=== PATIENT | male | born 1980 | race African-American/Black ===

== ENCOUNTER 2018-11-18 12:17 | Inpatient (IN) ==
[2018-11-18] MEDS ORDERED: TYLENOL PO ONE (12:46)
[2018-11-18] MEDS ORDERED: TORADOL IV ONE (13:12)
[2018-11-18] MEDS ORDERED: NS 1,000 ML IV ONE (13:12)
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
[2018-11-18 13:33] LABS: BASO# 0.02 X1000 (0.0-0.2); BASO% 0.1 % (0.0-0.8); EOS# 0.03 X1000 (0.0-0.7); EOS% 0.2 % (0.0-10.0); HEMATOCRIT 35.4 % (42.0-52.0); HEMOGLOBIN 12.5 g/dL (14.0-18.0); IMM GRAN# 0.13 X1000 (0.0-0.04); IMM GRAN% 0.7 % (0.0-0.5); LYMPH# 0.92 X1000 (1.2-3.4); LYMPH% 4.9 % (20.5-51.1); MCH 28.3 PG (27-31); MCHC 35.3 g/dL (33-37); MCV 80.1 FL (81-99); MONO# 1.99 X1000 (0.11-0.59); MONO% 10.6 % (1.7-9.3); MPV 9.6 FL (7.4-10.4); NEUT# 15.67 X1000 (1.4-6.5); NEUT% 83.5 % (42.2-75.2); PLT 255 X1000 (130-400); RBC 4.42 XMIL (4.7-6.1); WBC 18.76 X1000 (4.8-10.8)
[2018-11-18 13:39] LABS: BILIRUBIN URINE NEGATIVE (NEGATIVE); BLOOD URINE 4+ (NEGATIVE); CLARITY CLEAR (CLEAR); COLOR YELLOW; GLUCOSE URINE NEGATIVE (NEGATIVE); KETONE URINE TRACE mg/dL (NEGATIVE); LEUKOCYTES URINE 1+ (NEGATIVE); NITRITE URINE NEGATIVE (NEGATIVE); PROTEIN URINE 2+(100 mg/dL) mg/dL (NEGATIVE); UROBILINOGEN URINE 4 mg/dL
[2018-11-18 13:41] LABS: URINE BACTERIA 2+ /HFP; URINE CAST NONE SEEN /LPF; URINE CRYSTAL NONE SEEN /HPF; URINE EPITHELIAL CELLS <10 /HPF (<10); URINE RBC <10 /HPF (<10); URINE SOURCE CLEAN CATCH; URINE YEAST NONE SEEN /HPF
[2018-11-18 13:44] LABS: UR AMPHETAMINES QUAL NONE DETECTED (NONE DETECT); UR BARBITUATES QUAL NONE DETECTED (NONE DETECT); UR BENZODIAZEPIN QUAL NONE DETECTED (NONE DETECT); UR CANNABINOIDS QUAL NONE DETECTED (NONE DETECT); UR COCAINE QUAL NONE DETECTED (NONE DETECT); UR METHADONE QUAL NONE DETECTED (NONE DETECT); UR METHAMPHETAMINE QUAL NONE DETECTED (NONE DETECT); UR OPIATES QUAL PRESUMPTIVE POSITIVE (NONE DETECT); UR OXYCODONE QUAL NONE DETECTED (NONE DETECT); UR PCP QUAL NONE DETECTED (NONE DETECT); UR PROPOXYPHENE QUAL NONE DETECTED (NONE DETECT); UR TCA QUAL NONE DETECTED (NONE DETECT)
[2018-11-18 13:48] LABS: AGAP 11; ALBUMIN 3.2 g/dL (3.5-5.0); ALKALINE PHOSPHATASE 106 U/L (32-122); BUN 10 mg/dL (8-22); CALCIUM 9.2 mg/dL (8.8-10.2); CHLORIDE 99 mmol/L (98-107); COSMO 273; CREATININE 0.9 mg/dL (0.7-1.2); ESTIMATED GFR > 60; GLUCOSE 126 mg/dL (70-104); GOT 35 U/L (10-34); GPT 47 U/L (10-44); POTASSIUM 4.2 mmol/L (3.5-5.1); SODIUM 136 mmol/L (136-145); TCO2 27 mmol/L (25-35); TOTAL PROTEIN 6.8 g/dL (6.3-8.3)
[2018-11-18 13:54] LABS: INR 0.94
[2018-11-18 14:01] LABS: INFLUENZA A NEGATIVE (NEGATIVE); INFLUENZA B NEGATIVE (NEGATIVE)
--- NOTE | 2018-11-18 14:18 | Diag Imaging Result Doc PS360 ---
EXAM: CT ABD/PELVIS W/IV CONT ONLY HISTORY: LLQ pain TECHNIQUE: CT abdomen and pelvis with intravenous contrast COMPARISON: None. FINDINGS: Small nodular infiltrates in the lung bases. Small amount of air within a 1.3 cm nodule in the left lung base. Normal liver, spleen, pancreas, and adrenal glands. There are multiple nonobstructing right renal stones. Atypical areas of enhancement primarily in the left kidney. Normal aorta. No bowel obstruction. Normal appendix. Urinary bladder is mildly distended. Trace fluid in the pelvis. No abscess. IMPRESSION: 1.Left-sided pylonephritis 2.Small nodular infiltrates in the lung bases with a small cavity in the left lower lobe 3.Nonobstructing right renal stones This exam was performed using automated exposure control, adjustment of mA or kV according to patient size, and/or use of iterative reconstruction technique. Electronically signed by Gigi Hylton 11/18/2018 2:15 PM
[2018-11-18] MEDS ORDERED: ROCEPHIN 1 GM in NS 50 ML IV ONE (14:19)
--- NOTE | 2018-11-18 14:22 | Diag Imaging Result Doc PS360 ---
EXAM: CHEST-2 VIEWS HISTORY: fever TECHNIQUE: Chest two views COMPARISON: 11/17/2018 FINDINGS: The lungs are well expanded. The heart is not enlarged. The vessels are not distended. There are no infiltrates seen on the plain films. No pleural effusions. IMPRESSION: Negative exam. Electronically signed by Gigi Hylton 11/18/2018 2:19 PM
[2018-11-18] MEDS ORDERED: NS 1,000 ML IV PRN (15:16)
[2018-11-18] MEDS ORDERED: TYLENOL PO PRN (15:16)
[2018-11-18] MEDS ORDERED: VANCOMYCIN IV PER PHARMACY MISC SCH (15:30)
[2018-11-18] MEDS: ZOSYN 3.375 GM in NS 50 ML IV SCH ×2 (15:42→22:26)
[2018-11-18 15:48] LABS: IRON SATURATION 6 %; TIBC 226 ug/dL; TOTAL IRON 13 ug/dL (53-167); UNBOUND IRON 213 ug/dL (112-346)
[2018-11-18] MEDS ORDERED: VANCOMYCIN 2,200 MG in NS 500 ML IV ONE (16:00)
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
[2018-11-18 17:53] LABS: FERRITIN 325 ng/mL (30-400)
[2018-11-18] MEDS: NORCO-7.5 PO PRN ×2 (19:27→23:04)
[2018-11-19] MEDS: ZOSYN 3.375 GM in NS 50 ML IV SCH ×4 (03:27→22:15)
[2018-11-19] MEDS: NORCO-7.5 PO PRN ×3 (03:27→19:53)
[2018-11-19] MEDS ORDERED: ROBAXIN PO PRN (03:42)
[2018-11-19] MEDS ORDERED: MORPHINE IV PRN (03:42)
[2018-11-19] MEDS: VANCOMYCIN 1,600 MG in NS 250 ML IV SCH ×2 (04:06→18:07)
[2018-11-19] MEDS: PRILOSEC PO SCH (06:20)
[2018-11-19 07:32] LABS: BASO# 0.02 X1000 (0.0-0.2); BASO% 0.1 % (0.0-0.8); EOS# 0.01 X1000 (0.0-0.7); EOS% 0.1 % (0.0-10.0); HEMATOCRIT 32.1 % (42.0-52.0); HEMOGLOBIN 11.3 g/dL (14.0-18.0); IMM GRAN# 0.17 X1000 (0.0-0.04); IMM GRAN% 0.9 % (0.0-0.5); LYMPH# 1.34 X1000 (1.2-3.4); LYMPH% 6.8 % (20.5-51.1); MCH 27.7 PG (27-31); MCHC 35.2 g/dL (33-37); MCV 78.7 FL (81-99); MONO# 2.52 X1000 (0.11-0.59); MONO% 12.8 % (1.7-9.3); MPV 9.3 FL (7.4-10.4); NEUT# 15.66 X1000 (1.4-6.5); NEUT% 79.3 % (42.2-75.2); PLT 244 X1000 (130-400); RBC 4.08 XMIL (4.7-6.1); RDW 12.8 % (11.5-14.5); WBC 19.72 X1000 (4.8-10.8)
[2018-11-19 07:58] LABS: AGAP 13; ALBUMIN 2.9 g/dL (3.5-5.0); ALKALINE PHOSPHATASE 87 U/L (32-122); BUN 12 mg/dL (8-22); CALCIUM 8.6 mg/dL (8.8-10.2); CHLORIDE 98 mmol/L (98-107); COSMO 273; CREATININE 0.9 mg/dL (0.7-1.2); ESTIMATED GFR > 60; GLUCOSE 124 mg/dL (70-104); GOT 97 U/L (10-34); GPT 52 U/L (10-44); MAGNESIUM 1.7 mg/dL (1.5-2.7); POTASSIUM 3.9 mmol/L (3.5-5.1); SODIUM 136 mmol/L (136-145); TCO2 25 mmol/L (25-35); TOTAL PROTEIN 6.2 g/dL (6.3-8.3)
[2018-11-19] MEDS: TORADOL IV SCH ×3 (09:15→22:16)
--- NOTE | 2018-11-19 09:31 | PROGRESS NOTE ---
DATE: 11/19/2018 SUBJECTIVE: I was called last night by the nurse that this patient was having severe back pain. He was having fever and chills. The patient reports that he is feeling better but sometimes he has chills. OBJECTIVE: Vital Signs: Temperature 99.5 degrees, heart rate 79, respiratory rate 18, blood pressure 169/99, O2 saturation 100% on room air. General Examination: This is a 38-year-old, male, lying in bed, in no acute distress. Cardiovascular Examination: S1 and S2 heard. No murmurs, gallops, or rubs. Regular rate and rhythm. Respiratory Examination: Clear bilaterally to auscultation. No work of breathing or using accessory muscles. Abdomen: Soft. Nontender to palpation. CVA tenderness noted in the left side. Bowel sounds present. No organomegaly. Extremities: No clubbing, cyanosis, or edema. Peripheral pulses present in both legs. Neurological Examination: The patient is alert and oriented x3. Moves 4 extremities. Laboratory Data: White cell count 19.72, hemoglobin 11.3, hematocrit 32.1, platelets 244,000. Normal BMP. Mild elevation of AST at 97 and ALT 52. ASSESSMENT AND PLAN: 1. Left pyelonephritis. The patient has sepsis secondary to this condition. The patient has been started on vancomycin and Zosyn. Blood cultures from today report gram-negative cocci today. We will continue with the same antibiotic management until we have the final result of a blood culture. Also, urine culture is still pending. We will continue with intravenous fluids. 2. Community-acquired pneumonia. X-ray at admission was normal but the CT of the abdomen did show some bibasilar infiltrates. In any case, he is being treated with vancomycin and Zosyn which would cover that infection. 3. Anemia of chronic disease. Aware. We will continue to monitor CBC. 4. Tobacco abuse. Patient advised to stop smoking. 5. Disposition. We will continue to monitor this patient closely. cc: Geovanny Robledo MD
[2018-11-20] MEDS: ZOSYN 3.375 GM in NS 50 ML IV SCH ×4 (04:19→21:49)
[2018-11-20] MEDS: TORADOL IV SCH ×4 (04:19→21:49)
[2018-11-20] MEDS: VANCOMYCIN 1,600 MG in NS 250 ML IV SCH (04:56)
[2018-11-20] MEDS: PRILOSEC PO SCH (06:19)
[2018-11-20 06:39] LABS: BASO# 0.02 X1000 (0.0-0.2); BASO% 0.1 % (0.0-0.8); EOS# 0.09 X1000 (0.0-0.7); EOS% 0.5 % (0.0-10.0); IMM GRAN# 0.16 X1000 (0.0-0.04); IMM GRAN% 0.9 % (0.0-0.5); LYMPH# 2.02 X1000 (1.2-3.4); LYMPH% 11.2 % (20.5-51.1); MCH 28.1 PG (27-31); MCHC 35.5 g/dL (33-37); MCV 79.1 FL (81-99); MONO# 2.22 X1000 (0.11-0.59); MONO% 12.3 % (1.7-9.3); MPV 9.1 FL (7.4-10.4); NEUT# 13.55 X1000 (1.4-6.5); PLT 257 X1000 (130-400); RBC 3.92 XMIL (4.7-6.1); RDW 12.5 % (11.5-14.5); WBC 18.06 X1000 (4.8-10.8)
[2018-11-20 06:59] LABS: AGAP 11; BUN 15 mg/dL (8-22); CALCIUM 8.5 mg/dL (8.8-10.2); CHLORIDE 101 mmol/L (98-107); COSMO 279; CREATININE 0.9 mg/dL (0.7-1.2); ESTIMATED GFR > 60; GLUCOSE 115 mg/dL (70-104); POTASSIUM 4.3 mmol/L (3.5-5.1); SODIUM 139 mmol/L (136-145); TCO2 27 mmol/L (25-35)
--- NOTE | 2018-11-20 09:45 | PROGRESS NOTE ---
DATE: 11/20/2018 SUBJECTIVE: Patient reports that he is feeling better with less general malaise. 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 No acute issues noted as per nursing staff overnight. OBJECTIVE: Vital Signs: Temperature 97.9 degrees, heart rate 77, respiratory rate 18, blood pressure 154/89, O2 saturation 100% on room air. General Examination: This is a 38-year-old, male, lying in bed, in no acute distress. Cardiovascular Examination: S1 and S2 heard. No murmurs, gallops, or rubs. Regular rate and rhythm. Respiratory Examination: Clear bilaterally to auscultation. No work of breathing or using accessory muscles. Abdomen: Soft, nontender to palpation. CVA tenderness noted in the left side. Bowel sounds present. No organomegaly. Extremities: No clubbing, cyanosis, or edema. Peripheral pulses present in both legs. Neurological Examination: The patient is alert and oriented x3. Moves 4 extremities. Laboratory Data: White cell count 18.06, hemoglobin 11.0, hematocrit 31.0, platelets 257,000. Normal BMP. ASSESSMENT AND PLAN: 1. Sepsis secondary to left pyelonephritis. The patient is on vancomycin and Zosyn, day #3 of treatment. Blood cultures both show gram-positive cocci. Urine culture is negative. At this point, we are going to continue with both antibiotics until we know the final result of blood cultures. For the last 24 hours, the patient has been afebrile. If white cell count is elevated, we will definitely switch to different antibiotics; in this case, Zyvox. 2. Community-acquired pneumonia. The CT of the abdomen described infiltrates related with pneumonia. Considering that the white cell count is elevated, to have a better visualization of the lung anatomy, I will prefer to do a CT of the chest. We will go from there. 3. Anemia of chronic disease. Aware. We will continue to monitor CBC. 4. Tobacco abuse. Patient advised to stop smoking. 5. Disposition. We will continue to monitor this patient closely. cc: Geovanny Robledo MD [facility]
[2018-11-20] MEDS: NORCO-7.5 PO PRN (17:01)
[2018-11-20] MEDS: VANCOMYCIN 1,750 MG in NS 250 ML IV SCH (17:39)
[2018-11-21] MEDS: ZOSYN 3.375 GM in NS 50 ML IV SCH (04:25)
[2018-11-21] MEDS: TORADOL IV SCH ×4 (04:25→23:11)
[2018-11-21] MEDS: VANCOMYCIN 1,750 MG in NS 250 ML IV SCH (04:58)
[2018-11-21] MEDS: PRILOSEC PO SCH ×2 (05:33→06:35)
[2018-11-21 07:13] LABS: BASO# 0.03 X1000 (0.0-0.2); BASO% 0.2 % (0.0-0.8); EOS# 0.21 X1000 (0.0-0.7); EOS% 1.6 % (0.0-10.0); HEMATOCRIT 30.7 % (42.0-52.0); HEMOGLOBIN 10.5 g/dL (14.0-18.0); IMM GRAN# 0.13 X1000 (0.0-0.04); LYMPH# 2.08 X1000 (1.2-3.4); LYMPH% 15.7 % (20.5-51.1); MCH 27.2 PG (27-31); MCHC 34.2 g/dL (33-37); MCV 79.5 FL (81-99); MONO# 1.58 X1000 (0.11-0.59); MONO% 11.9 % (1.7-9.3); MPV 9.1 FL (7.4-10.4); NEUT# 9.24 X1000 (1.4-6.5); NEUT% 69.6 % (42.2-75.2); PLT 280 X1000 (130-400); RBC 3.86 XMIL (4.7-6.1); RDW 12.8 % (11.5-14.5); WBC 13.27 X1000 (4.8-10.8)
[2018-11-21 07:22] LABS: AGAP 10; BUN 13 mg/dL (8-22); CALCIUM 8.2 mg/dL (8.8-10.2); CHLORIDE 103 mmol/L (98-107); COSMO 276; CREATININE 0.9 mg/dL (0.7-1.2); ESTIMATED GFR > 60; GLUCOSE 109 mg/dL (70-104); POTASSIUM 4.5 mmol/L (3.5-5.1); SODIUM 138 mmol/L (136-145); TCO2 25 mmol/L (25-35)
[2018-11-21] MEDS ORDERED: ROCEPHIN 2 GM in NS 50 ML IV SCH (08:30)
--- NOTE | 2018-11-21 09:34 | Diag Imaging Result Doc PS360 ---
CT THORAX W/CONTRAST - 11/21/2018 INDICATION: pneumonia suspected COMPARISON: CT abdomen pelvis 11/18/2018 FINDINGS: There are a few scattered pulmonary nodules bilaterally, at least three in the left lower lobe, one in the right upper lobe, and one in the right lower lobe. The left lower lobe superior segment nodule demonstrates some slight internal cavitation. The right lower lobe nodule demonstrates surrounding infiltrate. No significant adenopathy. Heart size is normal. The left kidney continues to enhance heterogeneously. There is a stone in the right kidney. Bony structures are intact. IMPRESSION: 1. Bilateral multinodular airspace disease. There is also infiltrate and cavitation involved. These are nonspecific but highly compatible with septic emboli. 2. Abnormal left kidney compatible with pyelonephritis. This exam was performed using automated exposure control, adjustment of mA or kV according to patient size, and/or use of iterative reconstruction technique Electronically signed by Uday Tan 11/21/2018 9:32 AM
--- NOTE | 2018-11-21 12:29 | PROGRESS NOTE ---
DATE: 11/21/2018 SUBJECTIVE: The patient reports feeling not feverish. No general malaise. As per nursing staff, patient admit using IV drugs, in this case, heroin actively. He has used IV heroin just before coming to the hospital and he has been doing that for a while. He reports using a new needle every time he uses drugs. OBJECTIVE: Vital Signs: Temperature 97.4 degrees, heart rate 77, respiratory rate 18, blood pressure 142/96, O2 saturation 100% on room air. General: This is a 38-year-old male, lying in bed, in no acute distress. Cardiovascular: S1, S2 heard. No murmurs, gallops, or rubs. Regular rate and rhythm. Respiratory: Clear bilaterally to auscultation. No work of breathing or using accessory muscles. Abdomen: Soft, nontender to palpation. Bowel sounds present. No organomegaly. No CVA tenderness noted. Extremities: No clubbing, cyanosis, or edema. The are markings noted on the right antecubital fossa. Neurological: Patient is alert and oriented x3. Moves 4 extremities. LABORATORY DATA: White cell count is 13.27, hemoglobin 10.5, hematocrit 30.7, platelets 280,000. Normal BMP. ASSESSMENT AND PLAN: 1. Sepsis secondary to left pyelonephritis methicillin-susceptible Staphylococcus aureus bacteremia. Patient was admitted to the hospital for fever and sepsis. In the imaging, we found out that this patient has signs of left pyelonephritis. Also, the CT scan of the abdomen at the beginning showed some pneumonia. Because of persistent leukocytosis despite antibiotics, we have ordered a CT of the chest which basically showed bilateral multinodular air space disease and also infiltrate and cavitation involved which are highly compatible with septic emboli. Patient today disclose to us that he is a current intravenous drug abuser and his drug of choice is heroin. In that regard, considering that we have isolated MSSA, what we are going to do is to order an echocardiogram because we are suspecting endocarditis. We are going to consult Infectious Disease. We will continue to monitor this patient closely. 2. Anemia of chronic disease. Aware. We will continue to monitor CBC. 3. Tobacco use. Patient advised to stop smoking. 4. Disposition. Patient is going to [facility] to be evaluated by Infectious Disease. Also, we are ordering echocardiogram to rule out any endocarditis. cc: Geovanny Robledo MD MTDD
[2018-11-22] MEDS: TORADOL IV SCH (05:56)
[2018-11-22] MEDS: NORCO-7.5 PO PRN ×3 (06:04→19:57)
[2018-11-22 07:47] LABS: BASO# 0.03 X1000 (0.0-0.2); BASO% 0.2 % (0.0-0.8); EOS% 1.4 % (0.0-10.0); HEMATOCRIT 34.3 % (42.0-52.0); HEMOGLOBIN 11.7 g/dL (14.0-18.0); IMM GRAN# 0.14 X1000 (0.0-0.04); LYMPH# 2.19 X1000 (1.2-3.4); LYMPH% 15.6 % (20.5-51.1); MCH 27.3 PG (27-31); MCHC 34.1 g/dL (33-37); MCV 80.1 FL (81-99); MONO# 0.95 X1000 (0.11-0.59); MONO% 6.8 % (1.7-9.3); MPV 9.1 FL (7.4-10.4); NEUT# 10.54 X1000 (1.4-6.5); PLT 392 X1000 (130-400); RBC 4.28 XMIL (4.7-6.1); RDW 12.7 % (11.5-14.5); WBC 14.05 X1000 (4.8-10.8)
[2018-11-22 08:19] LABS: AGAP 11; BUN 11 mg/dL (8-22); CHLORIDE 98 mmol/L (98-107); COSMO 272; ESTIMATED GFR > 60; GLUCOSE 185 mg/dL (70-104); POTASSIUM 4.1 mmol/L (3.5-5.1); SODIUM 134 mmol/L (136-145); TCO2 25 mmol/L (25-35)
--- NOTE | 2018-11-22 08:49 | ECHO REPORT ---
ORDER DATE: 11/21/2018 INTERPRETING PHYSICIAN: Bk Xavier MD. REQUESTING PHYSICIAN: Geovanny Robledo MD. CLINICAL INDICATIONS: 38-year-old male with Staphylococcus bacteremia. I suspect the reason for this study is to look for endocardial vegetation. M-MODE MEASUREMENTS: Left ventricle end diastole: 5.5 cm. Left ventricle end systole: 3.3 cm. Posterior wall: 1.0 cm. Interventricular septum: 1.0 cm. Left atrium: 3.3 cm. Aortic root: 3.2 cm. SUMMARY OF 2-DIMENSIONAL IMAGIN. The left ventricular function appears to be normal, ejection fraction of 60% to 65%. 2. The aortic valve has 3 cusps, it looks normal. There is no vegetation. 3. The pulmonic valve looks normal. It was well visualized. Color flow mapping unremarkable. 4. The mitral valve looks normal. Color flow mapping unremarkable. 5. The pulse wave Doppler of mitral inflow shows normal E/A ratio. 6. Tissue Doppler of septal and lateral mitral annulus averages 12 cm. 7. There is no diastolic dysfunction. 8. The tricuspid valve shows mild degree of regurgitation. 9. Pulmonary pressure estimated at 30 mmHg. 10.There is no evidence of mass and no thrombus. 11.Very mild degree of mitral regurgitation appeared to be present by color flow mapping. 12.The atria appear to be moderately enlarged. Clinical correlation is recommended. cc: MD Geovanny Rock MD
[2018-11-22] MEDS: PRILOSEC PO SCH (09:38)
[2018-11-22] MEDS: ROCEPHIN 2 GM in NS 50 ML IV SCH (10:52)
[2018-11-22 12:27] LABS: HEPATITIS PROFILE ACUTE SEE COMMENTS
--- NOTE | 2018-11-22 12:39 | PROGRESS NOTE ---
DATE: 11/22/2018 SUBJECTIVE: The patient is resting comfortably in bed. OBJECTIVE: Vital signs: Temperature 98.7 degrees, pulse 78, respiratory rate 16, blood pressure 146/96, oxygen saturation 100%. HEENT: Atraumatic, normocephalic. Cardiovascular: S1, S2. Respiratory: Has evidence of good air entry bilaterally. Abdomen: Soft, nontender. No masses felt. Extremities: No evidence of edema. Central nervous system: No obvious focal deficit noted. LABORATORY DATA: WBC is 14.05, hematocrit is 34.3, with a platelet count of 392,000. Sodium is 134, potassium 4.1, pulse 98, bicarb 25, BUN is 11, creatinine 1.0. ASSESSMENT AND PLAN: 1. Sepsis secondary to left pyelonephritis. Blood cultures positive for methicillin resistant Staphylococcus aureus. Continue current antibiotic regimen. Infectious Disease consulted. 2. Anemia. Follow up on hemoglobin and hematocrit. Transfuse packed red blood cells as needed. 3. Tobacco use history. The patient advised to quit smoking. cc: Petar Pacheco MD
[2018-11-22] MEDS: DILAUDID IV PRN ×2 (16:06→22:43)
[2018-11-23] MEDS ORDERED: DILAUDID IV ONE (01:13)
[2018-11-23] MEDS: DILAUDID IV PRN ×3 (05:16→18:00)
[2018-11-23] MEDS: PRILOSEC PO SCH ×2 (05:16→06:02)
[2018-11-23 07:43] LABS: BASO# 0.06 X1000 (0.0-0.2); BASO% 0.3 % (0.0-0.8); EOS# 0.13 X1000 (0.0-0.7); EOS% 0.7 % (0.0-10.0); HEMATOCRIT 33.9 % (42.0-52.0); HEMOGLOBIN 11.9 g/dL (14.0-18.0); IMM GRAN# 0.22 X1000 (0.0-0.04); IMM GRAN% 1.2 % (0.0-0.5); LYMPH# 2.31 X1000 (1.2-3.4); LYMPH% 12.9 % (20.5-51.1); MCH 27.9 PG (27-31); MCHC 35.1 g/dL (33-37); MCV 79.6 FL (81-99); MONO# 1.41 X1000 (0.11-0.59); MONO% 7.9 % (1.7-9.3); MPV 8.9 FL (7.4-10.4); NEUT# 13.73 X1000 (1.4-6.5); PLT 441 X1000 (130-400); RBC 4.26 XMIL (4.7-6.1); RDW 12.8 % (11.5-14.5); WBC 17.86 X1000 (4.8-10.8)
[2018-11-23] MEDS: ROCEPHIN 2 GM in NS 50 ML IV SCH (10:30)
[2018-11-23] MEDS: NORCO-7.5 PO PRN ×2 (13:11→20:13)
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
[2018-11-23] MEDS: NAFCIL 2 GM in NS 100 ML IV SCH ×3 (16:36→22:06)
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
[2018-11-24] MEDS: NAFCIL 2 GM in NS 100 ML IV SCH ×6 (01:56→19:38)
[2018-11-24] MEDS: DILAUDID IV PRN ×4 (01:56→23:00)
[2018-11-24] MEDS: NORCO-7.5 PO PRN ×2 (06:09→19:38)
[2018-11-24] MEDS: PRILOSEC PO SCH (06:09)
[2018-11-24 07:12] LABS: BASO# 0.04 X1000 (0.0-0.2); BASO% 0.3 % (0.0-0.8); EOS# 0.17 X1000 (0.0-0.7); EOS% 1.1 % (0.0-10.0); HEMOGLOBIN 12.1 g/dL (14.0-18.0); IMM GRAN# 0.27 X1000 (0.0-0.04); IMM GRAN% 1.8 % (0.0-0.5); LYMPH# 2.11 X1000 (1.2-3.4); LYMPH% 14.1 % (20.5-51.1); MCH 27.6 PG (27-31); MCHC 34.6 g/dL (33-37); MCV 79.7 FL (81-99); MONO# 1.36 X1000 (0.11-0.59); MONO% 9.1 % (1.7-9.3); MPV 8.7 FL (7.4-10.4); NEUT# 10.98 X1000 (1.4-6.5); NEUT% 73.6 % (42.2-75.2); PLT 446 X1000 (130-400); RBC 4.39 XMIL (4.7-6.1); WBC 14.93 X1000 (4.8-10.8)
[2018-11-24 07:31] LABS: AGAP 9; ALB/GLOB RATIO 0.8; ALKALINE PHOSPHATASE 93 U/L (32-122); BUN 10 mg/dL (8-22); CALCIUM 9.2 mg/dL (8.8-10.2); CHLORIDE 101 mmol/L (98-107); COSMO 272; CREATININE 0.9 mg/dL (0.7-1.2); ESTIMATED GFR > 60; GLUCOSE 124 mg/dL (70-104); GOT 23 U/L (10-34); GPT 55 U/L (10-44); POTASSIUM 4.5 mmol/L (3.5-5.1); SODIUM 136 mmol/L (136-145); TCO2 26 mmol/L (25-35); TOTAL BILIRUBIN 0.44 mg/dL (0.20-1.00); TOTAL PROTEIN 6.6 g/dL (6.3-8.3)
--- NOTE | 2018-11-24 08:40 | EKG Report ---
Test Performed on : 11/24/2018 08:01:11 AM Test Reason : pyelonephritis, staph bacteremia Blood Pressure : / mmHG Vent. Rate : 084 BPM Atrial Rate : 084 BPM P-R Int : 134 ms QRS Dur : 082 ms QT Int : 360 ms P-R-T Axes : 028 029 030 degrees QTc Int : 425 ms Normal sinus rhythm. Cannot rule out Anterior infarct , age undetermined Abnormal ECG No previous ECGs available Confirmed by Chong BUSH, Bipin Crabtree ([id number]) on 11/25/2018 12:48:52 PM
--- NOTE | 2018-11-24 15:41 | PROGRESS NOTE ---
DATE: 11/24/2018 SUBJECTIVE: Patient is awake, not in any obvious distress. OBJECTIVE: Vital signs: Temperature is 97.9 degrees, pulse 101, respiratory rate is 20, blood pressure 142/93, oxygen saturation is 98%. HEENT: Atraumatic, normocephalic. Cardiovascular system: S1, S2. Respiratory system: Has evidence of good air entry bilaterally. Abdomen: Soft, nontender. No masses felt. Central nervous system: No obvious focal deficits noted. LABS: WBC is 14.93, hematocrit 35, with a platelet count of 446,000. Sodium is 136, potassium is 4.5, chloride is 103, bicarb 26, BUN 10, creatinine 0.9. ASSESSMENT AND PLAN: 1. Left pyelonephritis/methicillin-sensitive Staphylococcus aureus bacteremia. Antibiotic management per Infectious Disease team. 2. Anemia. Follow up on hemoglobin and hematocrit. Transfuse PRBCs as needed. 3. Tobacco use history. Patient advised to quit cigarette smoking. cc: Petar Pacheco MD
[2018-11-25] MEDS: NAFCIL 2 GM in NS 100 ML IV SCH ×4 (00:33→11:49)
[2018-11-25] MEDS: DILAUDID IV PRN ×4 (04:53→23:15)
[2018-11-25] MEDS: PRILOSEC PO SCH (06:25)
[2018-11-25] MEDS ORDERED: ANESTHESIA PB SET 88 IN 5742 ONE (12:54)
[2018-11-25] MEDS ORDERED: NS 1,000 ML ONE (12:54)
[2018-11-25] MEDS ORDERED: CLAVE TWINSITE 32 IN 11959 ONE (12:54)
[2018-11-25] MEDS ORDERED: DIPRIVAN 1% ONE (12:57)
--- NOTE | 2018-11-25 13:08 | PROGRESS NOTE ---
DATE: 11/25/2018 SUBJECTIVE: The patient is resting in bed. Not in any obvious distress. OBJECTIVE: Vital signs: Temperature 98.4 degrees, pulse 88, respiratory is 19, blood pressure 155/89, oxygen saturation is 99%. HEENT: Atraumatic, normocephalic. Cardiovascular: S1, S2. Respiratory: Has evidence of good entry bilaterally. Abdomen: Soft, nontender. No masses felt. Extremities: No evidence of edema. Central nervous system: No obvious focal deficits noted. LABS: None. ASSESSMENT AND PLAN: 1. Left pyelonephritis/pneumonia/methicillin sensitive Staph aureus bacteremia. Antibiotic management per the Infectious Disease team. The patient is scheduled to have a transesophageal echo to rule out any evidence of endocarditis and that is currently pending at this time. 2. Anemia follow up on hemoglobin and hematocrit. Transfuse packed red blood cells as needed. 3. Tobacco use history. The patient advised to quit cigarette smoking. cc: Petar Pacheco MD
--- NOTE | 2018-11-25 15:48 | INFECTIOUS DISEASE PROGRESS NO ---
DATE: 11/25/2018 PRESENT ILLNESS: The patient has an oxacillin sensitive Staph aureus bacteremia, pneumonia, and pyelonephritis. He the patient told me today that his transesophageal echocardiogram did not show endocarditis. The patient complained of a very painful left shoulder. He was he was seen yesterday by Dr. Peralta grew tried to aspirate the shoulder and could not obtain any purulent material. MEDICATIONS: Currently, the patient is on nafcillin intravenously. PHYSICAL EXAMINATION: Vital Signs: Temperature is 98.4 degrees, pulse 88, respirations 19, blood pressure 155/89. General: This is a fairly healthy-appearing young male. He is in no acute distress. Head, eyes, ears, nose, and throat: He can hear my spoken words and see near objects. He does not have any white coating to his tongue. Neck: No pain with movement of the neck. Lungs: Clear to auscultation. Cardiovascular: Regular. I do not hear a murmur. Abdomen: Soft and not tender. Extremities: Left shoulder: The patient is able to move a little bit more without as much pain. Neurologic: Patient is alert. He can move his extremities. There is no tremor. LAB AND X-RAY: The patient's repeat blood cultures from November 21 are sterile. CBC shows a white count of 14,930, hemoglobin 12.1, platelet count 446,000. Creatinine is 0.9. GFR is greater than 60. ASSESSMENT AND PLAN: The patient has Staphylococcus aureus bacteremia, pneumonia, and pyelonephritis as seen on CT scan. He does not appear to have endocarditis or a septic shoulder. My plan would be to have a PICC placed in the patient and send him home on either IV nafcillin or Ancef for a period of 2 weeks. I directly asked the patient if he does IV drugs and he told me that he did in the past but he has not done any of that in the last 2 years and he promised me he would not restart doing it. I am going to order a PICC to be placed and also put in an order for Social Service to set up home IV antibiotics. COMORBIDITIES: He had these multiple Staphylococcus aureus infections including bacteremia, pneumonia and pyelonephritis, but other than that, he is seems to be in good health. He does have hepatitis C as seen on the hepatitis panel. The blood sample has been sent off for hepatitis C by PCR. cc: Wellington Nicholas MD
[2018-11-25] MEDS: KEFZOL 2 GM/D5W 2 GM/50 ML IVPB IV SCH (16:33)
[2018-11-25 18:45] LABS: INR 0.96; PROTIME 13.6 Seconds (11.0-16.0)
[2018-11-25] MEDS: NORCO-7.5 PO PRN (20:35)
[2018-11-25] MEDS: ZOFRAN IV PRN (23:14)
[2018-11-25] MEDS ORDERED: TUMS EXTRA STRENGTH PO PRN (23:40)
[2018-11-26] MEDS: KEFZOL 2 GM/D5W 2 GM/50 ML IVPB IV SCH ×3 (00:21→15:20)
[2018-11-26] MEDS: PRILOSEC PO SCH (06:51)
[2018-11-26] MEDS: DILAUDID IV PRN ×2 (07:01→15:20)
[2018-11-26] MEDS: ZOFRAN IV PRN (07:02)
--- NOTE | 2018-11-26 08:36 | Transesophageal Echocardiogram ---
DATE: 11/25/2018 PROCEDURE IN DETAIL: The patient was brought to the catheterization laboratory in a fasting state. Informed consent was obtained. Prepped in usual fashion. He was anesthetized with Hurricaine spray, as well as propofol. After appropriate sedation, AMY probe was passed without difficulty. Images were obtained in multiple planes. Probe was removed. He tolerated the procedure well with no complications. FINDINGS: 1. The right atrium appears normal in size. There is no evidence of shunting across the interatrial septum with injection of agitated saline contrast as well as color Doppler evaluation. 2. Trace tricuspid regurgitation. 3. Normal RV size and systolic function. 4. No significant pulmonic insufficiency. 5. The left atrium appears normal in size with no evidence of clot in the left atrium or left atrial appendage. 6. No mitral valve prolapse. Trace mitral regurgitation. 7. Normal LV size with normal LV systolic function. Estimated EF is greater than 55%. 8. Aortic valve opens well. It is trileaflet. No evidence of stenosis or insufficiency. 9. Aorta appears normal in visualized segments. 10. No pericardial effusion seen. 11. There is no evidence of adherent vegetation to the valvular structures. cc: MD Kenney Reno MD
[2018-11-26] MEDS ORDERED: NS 250 ML ONE (08:44)
[2018-11-26] MEDS: NORCO-7.5 PO PRN (12:01)
[2018-11-26 14:07] LABS: HCV BY PCR SEE COMMENTS
[2018-11-26 16:48] VITALS: BP 144/78
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
--- NOTE | 2018-11-27 09:37 | DISCHARGE SUMMARY ---
ADMISSION DATE: 11/18/2018 DISCHARGE DATE: 11/26/2018 . DISPOSITION: Home. FOLLOWUP: 1. Dr. Nicholas. 2. Dr. Peralta. 3. Dr. Dominique. INVASIVE PROCEDURES DONE DURING ADMISSION: None. IMAGING STUDIES OF SIGNIFICANCE: 1. Chest x-ray was done initially which was negative. 2. A CT scan of the abdomen and pelvis did show a left side pyelonephritis, small nodular infiltrates in the lung bases with a small cavity in the left lower lobe. There was also a nonobstructing renal stone. 3. A CT scan of the chest showed bilateral multinodular airspace disease. There is also infiltrate and cavitation involved. These were highly compatible with septic emboli. 4. An echocardiogram did show an ejection fraction of 60 to 65 percent. This was a TTE. A AMY was done to rule out endocarditis and there was no evidence of adherent vegetation to the valvular structures. ADMISSION DIAGNOSES: 1. Left pyelonephritis. 2. Small nodular infiltrates in the lung base. 3. Tobacco abuse. DISCHARGE DIAGNOSES: 1. Methicillin-susceptible Staphylococcus aureus bacteremia with septic emboli and left pyelonephritis. The patient has been started on IV Ancef. A AMY was done. There was no evidence of vegetation. The patient will follow up with Dr. Nicholas. 2. Left pyelonephritis. Urine culture negative. Presumably this was hematogenous seeding. 3. Sepsis on presentation, resolved. 4. Microcytic anemia secondary to relative iron deficiency. 5. Hepatitis C. DISCHARGE MEDICATIONS: 1. Omeprazole 40 mg p.o. daily. 2. Tums. 3. Tylenol. 4. Ancef, dose and duration will be dictated by Dr. Nicholas accordingly. PRESENTING COMPLAINT: Left flank, back pain. HISTORY OF PRESENTING COMPLAINT: Mr. Cedeño is a 38-year-old gentleman, history of tobacco abuse, came to the emergency department because of chills and left back pain. Upon presentation, patient was evaluated including a CT scan of the abdomen and pelvis which revealed left pyelonephritis. He was subsequently admitted for further medical care. HOSPITAL COURSE: Mr. Cedeño was started on broad-spectrum IV antibiotics. Cultures were done. Urine culture came back negative. Blood culture came back MSSA. Antibiotics were tailored accordingly. ID was consulted. A CT scan of the chest was done which showed evidence suspicious for septic emboli. A AMY was ordered. Cardiology saw the patient and the AMY report was negative for any vegetations in the valvular structures. Mr. Cedeño was subsequently seen multiple times by Infectious Disease. The repeat blood culture came back negative. A decision was made to treat him for only 2 weeks with IV antibiotics. The patient will follow up with Dr. Nicholas and further decisions will be made on outpatient base. A PICC line was put in today. The patient is clinically stable. His current vitals, blood pressure is 143/89, pulse is 90, respiration is 21, temperature is 99 degrees. The patient is in stable condition for discharge. DISCHARGE TIME: Is 33 minutes. DISCHARGE INSTRUCTIONS: All the discharge instructions have been discussed with Mr. Cedeño. Mr. Cedeño, of note, has a history of IV drug abuse in the past. He has repeated multiple times that he does not use that anymore and he does not plan to use it anymore. He has also been advised to follow up with a GI doctor for this hepatitis C. All the discharge instructions have been discussed with him. The was at the bedside at the time of the encounter. Both voiced understanding. cc: MD Lucho Hall MD Leroy F. Harris, MD William D. Denney, MD
== END 2018-11-26 18:00 | disposition home or self-care (01) | DRG 871 ==
LOC: P.ED 12:17 → SUATTDRO 15:47 → P.MEDSURG 15:47 → 3N 11-21 18:06
PROVIDERS: ATTEND Internal Medicine
CPT/HCPCS: 36569; 71010; 71020; 71045; 71046; 71260; 74177; 80048; 80053; 80074; 80104; 80202; 80301; 80305; 81001; 82607; 82728; 82746; 83540; 83550; 83605; 83735; 85025; 85610; 85651; 86140; 86701; 87040; 87077; 87081; 87088; 87186; 87275; 87276; 87389; 87430; 87522; 87804; 93005; 93010; 93306; 93312; 94761; 96361; 96365; 96367; 96372; 96375; 99284; 99285; A9270; G0431; G0434; G0477; J0690; J0696; J1170; J1885; J2270; J2405; J2543; J3370; J7030; J7040; J7050; Q9967; S0032